=== PATIENT | female | born 1975 | race Caucasian/White ===

== ENCOUNTER 2023-07-22 10:33 | Inpatient (IN) | payer BC ==
[~2023-07-22 10:33] MED LIST: Midazolam 1 MG/ML 2 ML SDV ONE; Nozin Nasal Sanitizer NASBOTH SCH; Propofol 200 MG/20 ML SDV ONE; fentaNYL 100 MCG/2 ML SDV ONE
[2023-07-22] MEDS ORDERED: Lactated Ringers 1,000 ML IV SCH (10:45)
[2023-07-22 10:57] LABS: HEMATOCRIT 41.8 % (34.3-46.0); HEMOGLOBIN 14.3 g/dL (11.2-15.5); MEAN CORPUSCULAR HEMOGLOBIN 28.1 pg (31.6-35.5); MEAN CORPUSCULAR HGB CONC 34.2 g/dL (31.6-35.5); MEAN CORPUSCULAR VOLUME 82.1 fL (81.4-99.0); RED BLOOD CELL COUNT 5.09 M/uL (3.77-5.24); WHITE BLOOD CELL COUNT,WBC 8.3 K/uL (3.2-11.0)
[2023-07-22] MEDS ORDERED: oxyCODONE 5 MG Tab PO PRN (10:58)
[2023-07-22] MEDS ORDERED: Ketorolac 30 MG/ML SDV IVPUSH PRN (10:59)
[2023-07-22] MEDS ORDERED: Morphine 2 MG/ML SYRINGE IVPUSH PRN (10:59)
[2023-07-22] MEDS ORDERED: Docusate Sodium 100 MG Cap PO PRN (10:59)
[2023-07-22] MEDS ORDERED: Magnesium Hydroxide 400 MG/5 ML Susp 30 ML Cup PO PRN (10:59)
[2023-07-22] MEDS ORDERED: Sodium Chloride 0.9% 1,000 ML IV SCH (11:00)
[2023-07-22] MEDS ORDERED: Cyclobenzaprine 10 MG Tab PO PRN (11:00)
[2023-07-22] MEDS ORDERED: ceFAZolin 2 GM in Sodium Chloride 0.9% 100 ML IV SCH (11:00)
[2023-07-22] MEDS ORDERED: Tranexamic Acid 1,000 MG in Sodium Chloride 0.9% 50 ML IV ONE (11:15)
[2023-07-22 11:18] LABS: A/G RATIO 1.1 (1.2-2.2); ALANINE AMINOTRANSFERASE,ALT 29 U/L (12-78); ALKALINE PHOSPHATASE 70 U/L (46-116); ASPARTATE AMNIOTRANSFERASE,AST 17 U/L (15-37); BILIRUBIN TOTAL 0.4 mg/dL (0.2-1.0); BLOOD UREA NITROGEN,BUN 10 mg/dL (7-18); CALCIUM 8.7 mg/dL (8.5-10.1); CARBON DIOXIDE,CO2 26 mmol/L (21-32); CHLORIDE,CL 104 mmol/L (100-108); CREATININE 0.6 mg/dL (0.6-1.0); EST CRCL DRUG DOSING (CG) 103.01 mL/min; ESTIMATED GFR 111 mL/min (>60); GLUCOSE RANDOM 102 mg/dL (74-106); POTASSIUM,K 4.2 mmol/L (3.6-5.2); PROTEIN TOTAL,TP 7.5 g/dL (6.4-8.2); SODIUM,NA 139 mmol/L (140-148)
[2023-07-22 11:19] LABS: ANION GAP 13.2 mmol/L (5.0-14.0)
[2023-07-22] MEDS ORDERED: ceFAZolin 2 GM in Premix Bag 1 BAG IV ONE (11:30)
[2023-07-22] MEDS ORDERED: Midazolam 1 MG/ML 2 ML SDV ONE (13:15)
[2023-07-22] MEDS ORDERED: fentaNYL 100 MCG/2 ML SDV ONE ×3 (13:15→14:31)
[2023-07-22] MEDS ORDERED: Rocuronium 50 MG/5 ML Vial ONE (13:43)
[2023-07-22] MEDS ORDERED: Succinylcholine 200 MG/10 ML MDV ONE (13:43)
[2023-07-22] MEDS ORDERED: Ondansetron 4 MG/2 ML SDV ONE (13:43)
[2023-07-22] MEDS ORDERED: Neostigmine Methylsulfate 1 MG/ML 5 ML Syringe ONE (13:43)
[2023-07-22] MEDS ORDERED: Glycopyrrolate 0.2 MG/ML 5 ML MDV ONE (13:43)
[2023-07-22] MEDS ORDERED: Dexamethasone 4 MG/ML SDV ONE (13:43)
[2023-07-22] MEDS ORDERED: Lactated Ringers 1,000 ML ONE (13:53)
[2023-07-22] MEDS ORDERED: Bupivacaine 0.5% 50 ML MDV ONE (14:33)
[2023-07-22] MEDS ORDERED: Labetalol 20 MG/4 ML Syringe ONE (14:42)
[2023-07-22] MEDS: Ondansetron 4 MG/2 ML SDV IVPUSH PRN (15:53)
[2023-07-22] MEDS: Acetaminophen 325 MG Tab PO SCH ×3 (17:11→22:18)
[2023-07-22] MEDS: Ketorolac 15 MG/ML SDV IVPUSH PRN (17:44)
[2023-07-22] MEDS: oxyCODONE 5 MG Tab PO PRN (18:23)
[2023-07-22] MEDS: ceFAZolin 2 GM in Premix Bag 1 BAG IV SCH (20:02)
[2023-07-22] MEDS: Nozin Nasal Sanitizer NASBOTH SCH (20:04)
[2023-07-22] MEDS: atorvaSTATin 10 MG Tab PO SCH (20:05)
[2023-07-22] MEDS: Famotidine 20 MG Tab PO SCH (20:05)
[2023-07-23] MEDS: oxyCODONE 5 MG Tab PO PRN (02:07)
[2023-07-23] MEDS: ceFAZolin 2 GM in Premix Bag 1 BAG IV SCH ×2 (03:49→12:53)
[2023-07-23] MEDS: Acetaminophen 325 MG Tab PO SCH ×4 (03:50→21:26)
[2023-07-23] MEDS: Ondansetron 4 MG/2 ML SDV IVPUSH PRN (08:10)
[2023-07-23] MEDS: Ketorolac 15 MG/ML SDV IVPUSH PRN ×2 (08:13→19:10)
[2023-07-23] MEDS: Multivitamins with Iron/Calcium/Folic Acid/Minerals Tab PO SCH (08:18)
[2023-07-23] MEDS: Nozin Nasal Sanitizer NASBOTH SCH ×2 (08:18→21:24)
[2023-07-23] MEDS: Aspirin 325 MG Tab.EC PO SCH ×2 (08:18→21:24)
[2023-07-23] MEDS ORDERED: Acetaminophen/HYDROcodone 325-5 MG Tab PO PRN (08:23)
[2023-07-23] MEDS: VITAMIN E 400 UNIT PO SCH (08:40)
[2023-07-23] MEDS: Acetaminophen/HYDROcodone 325-10 MG Tab PO PRN ×2 (08:50→17:52)
[2023-07-23] MEDS ORDERED: Non-Formulary Medication 1 Each (Famotidine [Famotidine] 40 MG Tablet) PO SCH (09:00)
[2023-07-23] MEDS ORDERED: Non-Formulary Medication 1 Each (Multivitamin With Minerals [Multiple Vitamin] 1 EACH Tabl PO SCH (09:00)
[2023-07-23] MEDS: Famotidine 20 MG Tab PO SCH (21:25)
[2023-07-23] MEDS: atorvaSTATin 10 MG Tab PO SCH (21:25)
[2023-07-24] MEDS: Acetaminophen 325 MG Tab PO SCH ×2 (04:18→09:34)
[2023-07-24] MEDS: Acetaminophen/HYDROcodone 325-10 MG Tab PO PRN ×2 (07:29→13:37)
[2023-07-24] MEDS: Ketorolac 15 MG/ML SDV IVPUSH PRN (07:30)
[2023-07-24] MEDS: Aspirin 325 MG Tab.EC PO SCH (09:33)
[2023-07-24] MEDS: VITAMIN E 400 UNIT PO SCH (09:34)
[2023-07-24] MEDS: Nozin Nasal Sanitizer NASBOTH SCH (09:34)
[2023-07-24] MEDS: Multivitamins with Iron/Calcium/Folic Acid/Minerals Tab PO SCH (09:34)
== END 2023-07-24 15:34 | disposition home or self-care (01) | DRG 302 ==
LOC: JP.SDS 10:33 → JP.MS 15:40 → JP.SDS 07-23 12:59 → JP.MS 07-23 13:00
PROVIDERS: ADMIT Specialist; ATTEND Specialist
PROC: 0SRC0J9 Replacement of Right Knee Joint with Synthetic Substitute, Cemented, Open Approach (ICD-10-PCS; principal; 2023-07-22)
DX: M17.11 Unilateral primary osteoarthritis, right knee (principal); E11.9 Type 2 diabetes mellitus without complications; F17.200 Nicotine dependence, unspecified, uncomplicated; E66.01 Morbid (severe) obesity due to excess calories; Z68.41 Body mass index [BMI] 40.0-44.9, adult
CPT/HCPCS: 27447; 36415; 73560-26-RT; 73560-RT; 80053; 81025; 85027; 97110-GP; 97116-GP; 97161-GP; 97165-GO; 97535-GO; A9270-GY; C1713; C1776; J0330; J0690; J1100; J1885; J2250; J2270; J2405; J2704; J2710; J3010; J3490; J7030; J7120

== ENCOUNTER 2023-10-07 09:12 | Inpatient (IN) | payer BC ==
[~2023-10-07 09:12] MED LIST changes: +Bupivacaine 0.5% 30 ML SDV ONE; -Nozin Nasal Sanitizer NASBOTH SCH
[2023-10-07 09:52] LABS: HEMATOCRIT 38.8 % (34.3-46.0); HEMOGLOBIN 13.3 g/dL (11.2-15.5); MEAN CORPUSCULAR HEMOGLOBIN 27.3 pg (31.6-35.5); MEAN CORPUSCULAR HGB CONC 34.3 g/dL (31.6-35.5); MEAN CORPUSCULAR VOLUME 79.7 fL (81.4-99.0); RED BLOOD CELL COUNT 4.87 M/uL (3.77-5.24); WHITE BLOOD CELL COUNT,WBC 6.6 K/uL (3.2-11.0)
[2023-10-07 10:13] LABS: CALCIUM 8.8 mg/dL (8.5-10.1); CREATININE 0.6 mg/dL (0.6-1.0); EST CRCL DRUG DOSING (CG) 103.18 mL/min; POTASSIUM,K 3.9 mmol/L (3.6-5.2)
[2023-10-07 10:16] LABS: ANION GAP 12.9 mmol/L (5.0-14.0)
[2023-10-07] MEDS: Nozin Nasal Sanitizer NASBOTH SCH ×2 (10:30→21:03)
[2023-10-07] MEDS ORDERED: Lactated Ringers 1,000 ML IV SCH (10:30)
[2023-10-07] MEDS ORDERED: ceFAZolin 2 GM in Premix Bag 1 BAG IV ONE (11:00)
[2023-10-07] MEDS ORDERED: ceFAZolin 2 GM in Sodium Chloride 0.9% 50 ML IV ONE (11:00)
[2023-10-07] MEDS ORDERED: Magnesium Hydroxide 400 MG/5 ML Susp 30 ML Cup PO PRN (13:45)
[2023-10-07] MEDS ORDERED: Ondansetron 4 MG/2 ML SDV IVPUSH PRN (13:45)
[2023-10-07] MEDS ORDERED: Morphine 2 MG/ML SYRINGE IVPUSH PRN (13:45)
[2023-10-07] MEDS ORDERED: Docusate Sodium 100 MG Cap PO PRN (13:45)
[2023-10-07] MEDS ORDERED: Sodium Chloride 0.9% 1,000 ML IV SCH (13:45)
[2023-10-07] MEDS ORDERED: oxyCODONE 5 MG Tab PO PRN ×2 (13:46→13:47)
[2023-10-07] MEDS ORDERED: Propofol 200 MG/20 ML SDV ONE ×3 (14:11→15:19)
[2023-10-07] MEDS ORDERED: Midazolam 1 MG/ML 2 ML SDV ONE (14:16)
[2023-10-07] MEDS ORDERED: fentaNYL 100 MCG/2 ML SDV ONE (14:24)
[2023-10-07] MEDS: Acetaminophen 325 MG Tab PO SCH ×2 (16:47→21:05)
[2023-10-07] MEDS ORDERED: Acetaminophen/HYDROcodone 325-5 MG Tab PO PRN (17:41)
[2023-10-07] MEDS: Ketorolac 30 MG/ML SDV IVPUSH PRN (18:26)
[2023-10-07] MEDS ORDERED: Nozin Nasal Sanitizer NASBOTH SCH (21:00)
[2023-10-07] MEDS ORDERED: Non-Formulary Medication 1 Each (Famotidine [Famotidine] 40 MG Tablet) PO SCH (21:00)
[2023-10-07] MEDS: atorvaSTATin 10 MG Tab PO SCH (21:04)
[2023-10-07] MEDS: Famotidine 20 MG Tab PO SCH (21:05)
[2023-10-07] MEDS: ceFAZolin 2 GM in Sodium Chloride 0.9% 50 ML IV SCH (21:16)
[2023-10-08] MEDS: Acetaminophen/HYDROcodone 325-10 MG Tab PO PRN ×4 (00:05→20:08)
[2023-10-08] MEDS: Acetaminophen 325 MG Tab PO SCH ×4 (04:53→22:12)
[2023-10-08] MEDS: ceFAZolin 2 GM in Sodium Chloride 0.9% 50 ML IV SCH ×2 (06:21→14:08)
[2023-10-08] MEDS: Nozin Nasal Sanitizer NASBOTH SCH ×2 (08:51→22:10)
[2023-10-08] MEDS: Aspirin 325 MG Tab.EC PO SCH ×2 (08:51→22:12)
[2023-10-08] MEDS: VIT E PO SCH (08:52)
[2023-10-08] MEDS: Hydrochlorothiazide 12.5 MG Cap PO SCH (08:52)
[2023-10-08] MEDS: Multivitamins with Iron/Calcium/Folic Acid/Minerals Tab PO SCH (08:52)
[2023-10-08] MEDS: Cholecalciferol (Vitamin D3) 25 MCG Tab PO SCH (08:52)
[2023-10-08] MEDS: Lisinopril 10 MG Tab PO SCH (08:53)
[2023-10-08] MEDS ORDERED: Non-Formulary Medication 1 Each (Vitamin E [Vitamin E] 400 UNIT Capsule) PO SCH (09:00)
[2023-10-08] MEDS ORDERED: Non-Formulary Medication 1 Each (Multivitamin With Minerals [Multiple Vitamin] 1 EACH Tabl PO SCH (09:00)
[2023-10-08] MEDS: Ketorolac 30 MG/ML SDV IVPUSH PRN ×2 (09:03→22:14)
[2023-10-08] MEDS: atorvaSTATin 10 MG Tab PO SCH (22:12)
[2023-10-08] MEDS: Famotidine 20 MG Tab PO SCH (22:12)
[2023-10-09] MEDS: Acetaminophen 325 MG Tab PO SCH ×2 (04:13→09:35)
[2023-10-09] MEDS: Acetaminophen/HYDROcodone 325-10 MG Tab PO PRN ×2 (04:13→11:47)
[2023-10-09] MEDS: Nozin Nasal Sanitizer NASBOTH SCH (09:34)
[2023-10-09] MEDS: Hydrochlorothiazide 12.5 MG Cap PO SCH (09:35)
[2023-10-09] MEDS: Aspirin 325 MG Tab.EC PO SCH (09:35)
[2023-10-09] MEDS: Multivitamins with Iron/Calcium/Folic Acid/Minerals Tab PO SCH (09:35)
[2023-10-09] MEDS: Lisinopril 10 MG Tab PO SCH (09:35)
[2023-10-09] MEDS: Cholecalciferol (Vitamin D3) 25 MCG Tab PO SCH (09:36)
[2023-10-09] MEDS: VIT E PO SCH (09:36)
== END 2023-10-09 16:00 | disposition home or self-care (01) | DRG 302 ==
LOC: JP.SDS 09:12 → JP.2SS 13:45 → JP.SDS 10-08 08:30 → JP.2SS 10-08 08:30
PROVIDERS: ADMIT Specialist; ATTEND Specialist
PROC: 0SRD0J9 Replacement of Left Knee Joint with Synthetic Substitute, Cemented, Open Approach (ICD-10-PCS; principal; 2023-10-08)
DX: M17.12 Unilateral primary osteoarthritis, left knee (principal); I10 Essential (primary) hypertension; J44.9 Chronic obstructive pulmonary disease, unspecified; Z79.899 Other long term (current) drug therapy; Z98.890 Other specified postprocedural states
CPT/HCPCS: 36415; 73560-26-LT; 73560-LT; 80048; 84703; 85027; 97110-GP; 97116-GP; 97161-GP; 97530-GP; A9270-GY; C1713; C1776; J0690; J1885; J2250; J2704; J3010; J3490; J7120